=== PATIENT | male | born 1980 ===

== ENCOUNTER 2017-08-06 15:19 | Emergency (ER) | payer SELFPAY ==
[2017-08-06 15:55] VITALS: BMI 27.8
[2017-08-06 15:56] VITALS: RESP 16; O2SAT 98
[2017-08-06] MEDS ORDERED: Naproxen 550 mg Tab PO STA (16:39)
[2017-08-06] MEDS ORDERED: Naproxen 550 mg Tab PO ONE (16:50)
--- NOTE | 2017-08-06 17:14 | C.PDOC ---
History Of Present Illness 36 y/o male presents to the ER complaining of right foot pain which began yesterday. Patient reports that the pain was worse when he woke up today in the morning and it worsens with movement of the right foot. Patient states that the area is swollen. Patient denies having any fall, injury, and fever. Patient also denies having history of gout and a family history of gout. Time Seen by Provider: 08/06/17 15:58 Chief Complaint (Nursing): Lower Extremity Problem/Injury History Per: Patient History/Exam Limitations: no limitations Onset/Duration Of Symptoms: Days Current Symptoms Are (Timing): Still Present Severity: Moderate Past Medical History Reviewed: Historical Data, Nursing Documentation, Vital Signs Vital Signs: Last Vital Signs Temp 98.2 F 08/06/17 17:59 Pulse 72 08/06/17 17:59 Resp 16 08/06/17 17:59 BP 132/84 08/06/17 17:59 Pulse Ox 98 08/06/17 19:36 - Medical History PMH: Asthma, HTN Surgical History: No Surg Hx Family History: States: No Known Family Hx - Social History Hx Alcohol Use: Yes Hx Substance Use: No - Immunization History Hx Tetanus Toxoid Vaccination: No Hx Influenza Vaccination: No Hx Pneumococcal Vaccination: No Review Of Systems Except As Marked, All Systems Reviewed And Found Negative. Constitutional: Negative for: Fever, Chills Musculoskeletal: Positive for: Foot Pain (right foot pain) Neurological: Negative for: Weakness, Numbness Physical Exam - Physical Exam Appears: Non-toxic, No Acute Distress Head: Atraumatic, Normacephalic Eye(s): bilateral: Normal Inspection, PERRL Oral Mucosa: Moist Neck: Supple Chest: Symmetrical Cardiovascular: Rhythm Regular Respiratory: Normal Breath Sounds, No Accessory Muscle Use, No Rales, No Rhonchi , No Wheezing Extremity: Tenderness (dorsal aspect of right jack frame tender to palpation), Capillary Refill (< 2 seconds), Swelling (dorsal aspect of right foot mildly swollen), Other (right foot mildly erythematous, no swelling and tenderness in the ankle or calf) Pulses: Left Dorsalis Pedis: Normal, Right Dorsalis Pedis: Normal Neurological/Psych: Oriented x3, Normal Speech, Normal Cognition, Normal Motor, Normal Sensation ED Course And Treatment O2 Sat by Pulse Oximetry: 98 (ra) Pulse Ox Interpretation: Normal Progress Note: X-ray of right foot ordered. X- ray shows no fractures or dislocation. Patient given Naproxen and Colchicine. Patient given crutches and discharged. Patient told to return to ER if symptoms do not improve after 2 days. Disposition Counseled Patient/Family Regarding: Studies Performed, Diagnosis, Need For Followup, Rx Given - Disposition Referrals: [facility] [Outside] Disposition: HOME/ ROUTINE Disposition Time: 18:00 Condition: STABLE Additional Instructions: FOLLOW UP WITH YOUR DOCTOR IN 1-2 DAYS USE MEDICATIONS DIRECTED ONLY START ANTIBIOTICS IF SYMPTOMS DO NOT IMPROVE AFTER 2 DAYS OF COLCHICINE RETURN TO ER IF SYMPTOMS WORSEN Prescriptions: Clindamycin [Cleocin] 300 mg PO TID #21 cap Colchicine 0.6 mg PO TID #6 tablet Naproxen [Naprosyn] 1 tab PO BID PRN #25 tab PRN Reason: Pain Instructions: Gout (ED) Forms: [facility] (American), Work Excuse Print Language: KYRGYZ - POA Present On Arrival: None - Clinical Impression Clinical Impression: Gout attack, Right foot pain - Scribe Statement The provider has reviewed the documentation as recorded by the Yamilka Lynch Provider Attestation: All medical record entries made by the Yamilka were at my direction and personally dictated by me. I have reviewed the chart and agree that the record accurately reflects my personal performance of the history, physical exam, medical decision making, and the department course for this patient. I have also personally directed, reviewed, and agree with the discharge instructions and disposition.
[2017-08-06 18:00] VITALS: BP 132/84; PULSE 72; TEMP 98.2
--- NOTE | 2017-08-07 08:50 | RAD ---
PROCEDURE: Right Foot Radiographs. HISTORY: RIGHT FOOT PAIN COMPARISON: None. FINDINGS: BONES: No fracture identified. JOINTS: No dislocation seen. Bony articulations appear maintained. SOFT TISSUES: Unremarkable OTHER FINDINGS: None. IMPRESSION: No fracture or dislocation identified.
== END 2017-08-06 18:18 | disposition home or self-care (01) ==
LOC: C.ER 15:19
DX: M79.671 Pain in right foot (principal); M10.9 Gout, unspecified; I10 Essential (primary) hypertension